=== PATIENT | male | born 1985 | race Caucasian/White ===

== ENCOUNTER 2021-01-27 17:02 | Emergency (ER) | payer BC, SELFPAY ==
[2021-01-27 17:05] VITALS: BP 143/85; PULSE 78; RESP 16; TEMP 36.6; O2SAT 100
--- NOTE | 2021-01-27 17:14 | ED.UPPEXIN ---
HPI - Extremity Injury (Upper) General Chief Complaint: Wound/Laceration Stated Complaint: left wrist injury Time Seen by Provider: 01/27/21 17:09 Source: patient and RN notes reviewed Mode of arrival: ambulatory Limitations: no limitations History of Present Illness HPI narrative: Patient states that he cut it on some wood carving tools this morning at 5:00 a.m.. He washed it with peroxide and iodine swabs. complaint: injury to: left and wrist Onset (ago): hour(s) (12) Other injuries: none Handedness: right Place: home Severity: mild Relieving factors: none Exacerbating factors: movement of extremity Context: laceration Associated symptoms: denies other symptoms Related Data Allergies Allergy/AdvReac Type Severity Reaction Status Date / Time No Known Allergies Allergy Verified 01/27/21 17:26 Review of Systems Review of Systems: All systems reviewed & are unremarkable except as noted in HPI and below PMFSH Past Medical History Medical History (Updated 01/27/21 @ 17:22 by Edgar Branham MD) No active medical problems Surgical History Surgical History (Updated 01/27/21 @ 17:22 by Edgar Branham MD) History of kidney surgery Social History Social History (Updated 01/27/21 @ 17:21 by Edgar Branham MD) Smoking packs per day: 1 Smoking cigarettes per day: 20.0 Smoking status: Current every day smoker Exam Const: General: healthy appearing and no acute distress Nutritional Appearance: well nourished and thin Orientation/consciousness: patient oriented x3 HENMT: Head: normal to inspection Ears: external ears normal Eyes: Conjunctivae: conjunctivae normal Pupils: Equal, round and reactive pupils present EOM: EOMs intact bilaterally Neck: Neck: normal visual inspection Resp: Effort & Inspection: normal respiratory effort Auscultation: clear to auscultation bilaterally Cardio: Rate: regular rate Rhythm: regular rhythm GI: GI Palp: Yes Soft to palpation and No Tenderness to palpation present (GI) Auscultation: normal bowel sounds Back/Spine/Pelvis: Cervical Spine: cervical ROM normal Thoracic/Lumbar Spine: thoraco-lumbar ROM normal Skin: General skin exam: normal color Rashes: no rashes Wounds: wounds noted laceration left palmar wrist size (3cm), margins well approximated and well defined and without odor Neuro: General: patient oriented x3, moves all extremities and no focal motor deficits Speech: normal speech Gait exam (Neuro): Normal gait present Extrem: General: normal to inspection and no clubbing, cyanosis or edema Psych: Appearance: grossly normal and well kempt Mental Status: mental status grossly normal Affect: normal affect Attitude: cooperative Thought content: Yes Normal thought content present Course Course Emergency Course: I explained the patient that it has been 12 hours since laceration. his laceration will have to heal by secondary intention. He will be put on antibiotics for 7 days he is advised to wash with soap and water as needed. Discharge Plan Discharge Clinical Impression: Laceration without foreign body Patient Disposition: Home, Self-Care Condition: Stable Instructions: Antibiotic Form, Laceration (ED) Additional Instructions: wash and dry with soap and water as needed. Use Tylenol and or Motrin as needed for pain. Prescriptions: New cephalexin 500 mg capsule 500 mg PO Q8H 7 Days Qty: 21 RF: 0 Follow-up/Referrals: UNKNOWN,DOCTOR [Primary Care Provider] - Time of Disposition: 17:20
[2021-01-27 17:22] VITALS: RESP 20
== END 2021-01-27 17:22 | disposition home or self-care (01) ==
PROVIDERS: Emergency Provider Emergency Medicine
DX: S61.512A Laceration without foreign body of left wrist, initial encounter (principal); W45.8XXA Other foreign body or object entering through skin, initial encounter
CPT/HCPCS: 99283

== ENCOUNTER 2021-02-10 20:29 | Emergency (ER) | payer BC, SELFPAY ==
[2021-02-10 20:30] VITALS: BP 120/84; PULSE 99; RESP 16; TEMP 36.9; O2SAT 98
--- NOTE | 2021-02-10 20:35 | ED.FEMALEGU ---
HPI - Female Genitourinary General Stated complaint: left wrist infection from cut Source: patient Mode of arrival: ambulatory History of Present Illness HPI Narrative: this is MD elicited complaint: dysuria and flank pain Pertinent past history: other ( history of bladder cancer) Onset (ago): day(s) Severity: mild Severity scale (1-10): 4 Quality of pain: dull Consistency: constant Vaginal discharge: none Vaginal bleeding: none Urinary symptoms: Dysuria Exacerbating factors: urination Associated symptoms: chills Related Data Allergies Allergy/AdvReac Type Severity Reaction Status Date / Time No Known Allergies Allergy Verified 01/27/21 17:26 [facility] Past Medical History Medical History (Updated 01/28/21 @ 00:01 by Willam Quiles) No active medical problems Surgical History Surgical History (Updated 01/27/21 @ 17:22 by Edgar Branham MD) History of kidney surgery Social History Social History (Updated 01/27/21 @ 17:21 by Edgar Branham MD) Smoking packs per day: 1 Smoking cigarettes per day: 20.0 Smoking status: Current every day smoker Discharge Plan Discharge Prescriptions: No Action cephalexin 500 mg capsule 500 mg PO Q8H 7 Days Qty: 21 RF: 0
[2021-02-10] MEDS: cefTRIAXone 1 GM VIAL IM (20:41)
--- NOTE | 2021-02-10 20:48 | ED.WOUNDLAC ---
HPI - Wound/Laceration General Chief Complaint: Wound/Laceration Stated Complaint: left wrist infection from cut Source: patient Mode of arrival: ambulatory Limitations: no limitations History of Present Illness HPI narrative: this is a 35-year-old gentleman that presents with a laceration that occurred 2 to 3 weeks ago was seen in ER and started on antibiotics laceration was at that time about 10-day-old and sutures were not placed patient was started on antibiotics, the patient currently went swimming in [place] and the the wound on his left wrist is some draining some yellow purulence material, there is no numbness or tingling in his fingers has a strong brisk radial pulse on the left with no fever chills. Patient is up-to-date with his tetanus. Onset (ago): day(s) Extremity Location: Left: wrist ( Wound) Place: home Patient tetanus UTD: Yes Context: accidental Associated symptoms: none Related Data Allergies Allergy/AdvReac Type Severity Reaction Status Date / Time No Known Allergies Allergy Verified 01/27/21 17:26 Review of Systems Review of Systems: All systems reviewed & are unremarkable except as noted in HPI and below PMFSH Past Medical History Medical History No active medical problems Surgical History Surgical History History of kidney surgery Social History Social History Smoking packs per day: 1 Smoking cigarettes per day: 20.0 Smoking status: Current every day smoker Exam Const: General: no acute distress Orientation/consciousness: patient oriented x3 HENMT: Head: normal to inspection Eyes: Conjunctivae: conjunctivae normal Pupils: Equal, round and reactive pupils present EOM: EOMs intact bilaterally Neck: Neck: normal visual inspection, no lymphadenopathy and no meningeal signs Chest: Chest palpation & inspection: normal inspection of the chest Resp: Effort & Inspection: normal respiratory effort Auscultation: clear to auscultation bilaterally Cardio: Rate: regular rate Rhythm: regular rhythm GI: GI Palp: Yes Soft to palpation Skin: General skin exam: normal color Other: Wound on his left wrist Neuro: General: patient oriented x3 and moves all extremities Extrem: General: normal to inspection and no pedal edema Psych: Mental Status: mental status grossly normal Affect: normal affect Attitude: cooperative Course Course Emergency Course: patient received IM ceftriaxone and triple antibiotic ointment. Critical Care Time Critical Care Time Critical Care Time: No Discharge Plan Discharge Clinical Impression: Abscess, Laceration Patient Disposition: Home, Self-Care Condition: Stable Instructions: Antibiotic Form, Acute Wounds (ED) Additional Instructions: take medicine as prescribed and follow-up with primary care physician if symptoms persist or worsen. Prescriptions: New amoxicillin-pot clavulanate [Augmentin] 875-125 mg tablet 1 tablet PO Q12H Qty: 20 RF: 0 mupirocin 2 % ointment 1 applic topical TID 7 Days Qty: 15 RF: 0 Follow-up/Referrals: UNKNOWN,DOCTOR [Primary Care Provider] - Time of Disposition: 20:55
[2021-02-10 20:53] VITALS: PULSE 100; RESP 16; O2SAT 97
== END 2021-02-10 21:11 | disposition home or self-care (01) ==
PROVIDERS: Emergency Provider Emergency Medicine
DX: L02.91 Cutaneous abscess, unspecified (principal); S61.512D Laceration without foreign body of left wrist, subsequent encounter
CPT/HCPCS: 96372; 99283; J0696

== ENCOUNTER 2021-05-10 04:33 | Emergency (ER) | payer BC, SELFPAY ==
[2021-05-10 04:38] VITALS: PULSE 72; RESP 18; TEMP 36.6; O2SAT 96
--- NOTE | 2021-05-10 04:39 | ED.WOUNDLAC ---
HPI - Wound/Laceration General Chief Complaint: Unspecified Stated Complaint: ABRASION Time Seen by Provider: 05/10/21 04:39 Source: patient Mode of arrival: ambulatory Limitations: no limitations History of Present Illness HPI narrative: 36-year-old man who was previously well comes in today complaining of pain in the tip of his right thumb and long finger that started 2 days ago. He was standing wood by hand when he had splinters enter the tips of several of his fingers. He states that he was able to remove several by hand but the 2 aforementioned fingers he could not fix. States he put super glue on some of the wounds in order to try to get the splinters out. He denies any redness, drainage. He states that it is intermittently painful and numb. Onset (ago): day(s) (2) Extremity Location: Right: hand (Thumb and long finger) Place: home Patient tetanus UTD: No Context: accidental Associated symptoms: pain and loss of feeling/numbness Related Data Allergies Allergy/AdvReac Type Severity Reaction Status Date / Time No Known Allergies Allergy Verified 01/27/21 17:26 Review of Systems Review of Systems: All systems reviewed & are unremarkable except as noted in HPI and below Constitutional: Constitutional: Denies chills and Denies fever(s) Musculoskeletal: Musculoskeletal: Denies arthralgias and Denies joint swelling Integumentary/Breasts: Skin/Breast: Denies pruritus, Denies erythema and Denies rash Hematologic/Lymphatic: Hematologic/Lymphatic: Denies easy bleeding and Denies easy bruising PMFSH Past Medical History Medical History No active medical problems Surgical History Surgical History History of kidney surgery Social History Social History Smoking packs per day: 1 Smoking cigarettes per day: 20.0 Smoking status: Current every day smoker Exam Const: General: healthy appearing and alert Limitations: no limitations Other: Mild acute distress. Anxious. Skin: General skin exam: normal color, no jaundice and no pallor Rashes: no rashes Other: Abrasions at the finger tips near the nail plate of the long finger and thumb. Both are very sensitive to palpation. There is minimal swelling if any and no erythema, drainage, fluctuance, or palpable foreign body. Neuro: General: patient oriented x3, moves all extremities, no focal motor deficits and CN's II-XI intact bilaterally Speech: normal speech Gait exam (Neuro): Normal gait present Extrem: General: normal to inspection and no clubbing, cyanosis or edema Psych: Appearance: grossly normal and well kempt Mental Status: mental status grossly normal Affect: normal affect Attitude: cooperative Thought content: Yes Normal thought content present Course Course Emergency Course: 0500: Close examination of the tips of the right long finger and thumb reveal no evident foreign body by visualization or palpation however there is some apparent abrasions/wounds adjacent to the nail bed as though he had cut his nails too short. Tenderness persisted despite attempt at digital block in both affected fingers. Vital Signs Vital signs: Vital Signs Temperature 36.6 C 05/10/21 04:38 Pulse Rate 72 05/10/21 04:38 Respiratory Rate 18 05/10/21 04:38 Pulse Oximetry 96 05/10/21 04:38 Temperature 36.6 C 05/10/21 04:38 Pulse Rate 72 05/10/21 04:38 Respiratory Rate 18 05/10/21 04:38 Pulse Oximetry 96 05/10/21 04:38 Procedures Foreign Body Removal Foreign Body #1: Foreign Body Removal Date: 05/10/21 Foreign Body Removal Time: 05:00 Time Out Performed: yes Site: right and hand Description of foreign body: other (Splinters) Sedation/Analgesia: other (1.5 cc plain lidocaine were injected in the spaces ulnar and radial to the 1st MCP of
[2021-05-10] MEDS: TETANUS,DIPHTHERIA,AC PERTUSSIS ADULT 0.5 ML (ADACEL) IM (04:51)
[2021-05-10] MEDS: LIDOCAINE HCL 1% LOCAL INJ 20 ML VIAL 10 ML INFILTRATE (04:52)
--- NOTE | 2021-05-10 05:28 | PC.NURSE ---
patient hand scrubbed by with rosalia & area investigated for wood.
[2021-05-10 05:29] VITALS: PULSE 88; RESP 18; TEMP 36.6; O2SAT 99
== END 2021-05-10 05:34 | disposition home or self-care (01) ==
PROVIDERS: Emergency Provider Emergency Medicine
DX: S60.351A Superficial foreign body of right thumb, initial encounter (principal); S60.452A Superficial foreign body of right middle finger, initial encounter; F17.200 Nicotine dependence, unspecified, uncomplicated
CPT/HCPCS: 90471; 90715; 99283

== ENCOUNTER 2021-09-23 22:20 | Emergency (ER) | payer BC, SELFPAY ==
[2021-09-23 22:30] VITALS: BP 122/97; PULSE 79; RESP 16; TEMP 36.3; O2SAT 100
--- NOTE | 2021-09-23 23:02 | ED.SKABFB ---
HPI - Skin/Abscess/Foreign Bdy General Chief complaint: Skin/Abscess/Foreign Body Stated complaint: cyst in front of ear Source: patient and RN notes reviewed Mode of arrival: ambulatory Limitations: no limitations History of Present Illness HPI narrative: Patient states he has always had a small amount of swelling in front of his left ear in front of the tragus. Last 3 days it has gotten significantly more swollen and tender. complaint: abscess/boil Onset (ago): day(s) (3) Location: face Severity: severe Quality: burning and constant Pain Consistency: constant Relieving factors: none Exacerbating factors: palpation and movement Context: none Associated symptoms: denies other symptoms Treatments prior to arrival: none Related Data Allergies Allergy/AdvReac Type Severity Reaction Status Date / Time codeine Allergy Vomiting Verified 09/23/21 22:38 Review of Systems Review of Systems: All systems reviewed & are unremarkable except as noted in HPI and below Constitutional: Constitutional: Denies chills and Denies fever(s) PMFSH Past Medical History Medical History No active medical problems Surgical History Surgical History History of kidney surgery Social History Social History Smoking packs per day: 1 Smoking cigarettes per day: 20.0 Smoking status: Current every day smoker Exam Const: General: healthy appearing, no acute distress and alert Nutritional Appearance: well nourished Orientation/consciousness: patient oriented x3 HENMT: Head: normal to inspection Ears: external ears normal Face and sinus: normal facial exam Eyes: Conjunctivae: conjunctivae normal Pupils: Equal, round and reactive pupils present EOM: EOMs intact bilaterally Neck: Neck: normal visual inspection and no lymphadenopathy Resp: Effort & Inspection: normal respiratory effort Auscultation: clear to auscultation bilaterally Cardio: Rate: regular rate Rhythm: regular rhythm GI: Auscultation: normal bowel sounds Back/Spine/Pelvis: Cervical Spine: cervical ROM normal Thoracic/Lumbar Spine: thoraco-lumbar ROM normal Skin: General skin exam: normal color Lesions: lesion noted (abscess 1.5 cm Erythema, warmth, tender.) cyst left face Neuro: General: patient oriented x3, moves all extremities, no meningeal signs, no focal motor deficits and CN's II-XI intact bilaterally Speech: normal speech Gait exam (Neuro): Normal gait present Extrem: General: normal to inspection and no clubbing, cyanosis or edema Psych: Appearance: grossly normal and well kempt Mental Status: mental status grossly normal Affect: normal affect Attitude: cooperative Thought content: Yes Normal thought content present Course Vital Signs Vital signs: Vital Signs Temperature 36.3 C L 09/23/21 22:30 Pulse Rate 79 09/23/21 22:30 Respiratory Rate 16 09/23/21 22:30 Blood Pressure 122/97 H 09/23/21 22:30 Pulse Oximetry 100 09/23/21 22:30 Temperature 36.3 C L 09/23/21 22:30 Pulse Rate 94 09/23/21 23:30 Respiratory Rate 16 09/23/21 23:30 Blood Pressure 117/88 09/23/21 23:30 Pulse Oximetry 99 09/23/21 23:30 MDM - Skin/Abscess/Foreign Bdy MDM Narrative Medical decision making narrative: This shows infection of a preauricular cyst. I would be hesitant to lacerate this as the surrounding structures including branches of the facial nerve and the temporal artery. I will start him on some antibiotics and ask that he see ear flap binder for further evaluation of the pre-auricular cyst. Discharge Plan Discharge Clinical Impression: Cyst of left preauricular region Patient Disposition: Home, Self-Care Condition: Stable Instructions: Antibiotic Form, Abscess (ED) Additional Instructions: Warm compresses 3-4 times daily. Follow u
[2021-09-23] MEDS: AMOXICILLIN/CLAVULANATE K 875-125 MG TAB 1 TABLET PO (23:19)
[2021-09-23 23:30] VITALS: BP 117/88; PULSE 94; RESP 16; O2SAT 99
== END 2021-09-23 23:33 | disposition home or self-care (01) ==
PROVIDERS: Emergency Provider Emergency Medicine
DX: L72.9 Follicular cyst of the skin and subcutaneous tissue, unspecified (principal)
CPT/HCPCS: 99283; A9270

== ENCOUNTER 2022-03-18 08:43 | Emergency (ER) | payer BC, SELFPAY ==
[2022-03-18 08:51] VITALS: BP 120/94; PULSE 84; RESP 16; TEMP 36.4; O2SAT 100
[2022-03-18] MEDS: TETRACAINE HCL 0.5% OPHTH SOLN 4 ML BTL 1 DROP RIGHT EYE (09:30)
[2022-03-18] MEDS: FLUORESCEIN SOD 1 MG/STRIP RIGHT EYE (09:30)
[2022-03-18] MEDS: ERYTHROMYCIN OPHTH OINTMENT 3.5 GM TUBE 1 APPLIC RIGHT EYE (09:31)
--- NOTE | 2022-03-18 09:33 | PC.NURSE ---
PT REPORTS HE ALSO CLEANED A SEWAGE SPILL FRIDAY AND SOME SPLASHED IN HIS EYE. EYE STAIN AND EXAM WAS COMPLETED PER ERP.
--- NOTE | 2022-03-18 09:35 | ED.EYEPROB ---
HPI - Eye Problem General Chief complaint: Eye Problems Stated complaint: R EYE PAIN Time Seen by Provider: 03/18/22 08:47 Source: patient and RN notes reviewed Mode of arrival: ambulatory Limitations: no limitations History of Present Illness chief complaint: eye redness Onset (ago): day(s) (2) Onset description: gradual Duration: improved Location: right eye Eye Symptoms: burning and redness Place: home Mechanism: chemical exposure (was cleaning a counter pocket sewer?) Severity: moderate Severity scale (1-10): 2 Associated symptoms: none Treatments Prior to Arrival: irrigated eye Related Data Allergies Allergy/AdvReac Type Severity Reaction Status Date / Time codeine Allergy Vomiting Verified 03/18/22 09:10 Review of Systems Review of Systems: All systems reviewed & are unremarkable except as noted in HPI and below Constitutional: Constitutional: Reports no additional constitutional complaints Eyes: Eyes: Reports as per HPI ENT: Reports system reviewed and no additional complaints, except as documented Cardiovascular: Cardiovascular: Reports no additional cardiovascular complaints Respiratory: Respiratory: Reports no additional respiratory complaints Gastrointestinal: Gastrointestinal: Reports no additional gastrointestinal complaints Musculoskeletal: Musculoskeletal: Reports no additional musculoskeletal complaints Integumentary/Breasts: Skin/Breast: Reports system reviewed and no additional complaints, except as docu Neurologic: Reports system reviewed and no additional complaints, except as documented Psychiatric: Psychiatric: Reports no additional psychiatric complaints Endocrine: Endocrine: Reports no additional endocrine complaints Hematologic/Lymphatic: Hematologic/Lymphatic: Reports no additional hematologic/lymphatic complaints Allergic/Immunologic: Allergic/Immunologic: Reports no additional allergic/immunologic complaints PMFSH Past Medical History Medical History Conjunctivitis No active medical problems Surgical History Surgical History History of kidney surgery Social History Social History Smoking packs per day: 1 Smoking cigarettes per day: 20.0 Smoking status: Current every day smoker Exam Const: General: healthy appearing and no acute distress Nutritional Appearance: well nourished Orientation/consciousness: patient oriented x3 Limitations: no limitations HENMT: Head: normal to inspection Ears: external ears normal, TM's normal bilaterally and EAC's normal General nose exam: Normal external nose present and Normal nares present Face and sinus: normal facial exam and sinuses nontender Mouth: Yes Normal oral and palatal mucosa present and Yes moist mucous membranes Teeth and gingiva: dentition normal Throat: posterior oropharynx normal Eyes: Conjunctivae: conjunctival abnormality (mild scleral injection with upper eye scleral abrasion. vision wnl.) right Pupils: Equal, round and reactive pupils present EOM: EOMs intact bilaterally Neck: Neck: normal visual inspection, no lymphadenopathy and no meningeal signs Chest: Chest palpation & inspection: normal inspection of the chest Resp: Effort & Inspection: normal respiratory effort Auscultation: clear to auscultation bilaterally Cardio: Rate: regular rate Rhythm: regular rhythm GI: GI Palp: Yes Soft to palpation and No Tenderness to palpation present (GI) Auscultation: normal bowel sounds : General: Yes bladder normal to palpation and Yes no CVA tenderness Back/Spine/Pelvis: Back: no CVA tenderness Skin: General skin exam: normal color Rashes: no rashes Wounds: no wounds Neuro: General: patient oriented x3, moves all extremities, no meningeal signs, no focal motor deficits and CN's II-XI intact bilaterally Cranial nerves: Yes Equal, round and re
== END 2022-03-18 09:47 | disposition home or self-care (01) ==
PROVIDERS: Emergency Provider Emergency Medicine
DX: H10.9 Unspecified conjunctivitis (principal)
CPT/HCPCS: 99283; A9270

== ENCOUNTER 2022-07-07 00:45 | Emergency (ER) | payer BC, SELFPAY ==
[2022-07-07 00:45] VITALS: BP 132/97; PULSE 77; RESP 20; TEMP 36.6; O2SAT 99
[2022-07-07 01:57] LABS: Strep Group A RT-PCR Not Detected (Negative)
[2022-07-07 02:00] VITALS: BP 130/97; PULSE 72; RESP 20; TEMP 36.9; O2SAT 99
[2022-07-07 02:07] LABS: Influenza A QL RT-PCR Positive (Negative); Influenza B QL RT-PCR Negative (Negative); SARS-CoV-2 RNA PCR Negative (Negative)
[2022-07-07 02:09] LABS: RSV RNA, RT-PCR Negative (Negative)
--- NOTE | 2022-07-07 02:54 | ED.URI ---
HPI - URI/Sore Throat General Chief Complaint: Upper Respiratory Infection Stated Complaint: sore throat Time Seen by Provider: 07/07/22 00:49 Source: patient and RN notes reviewed Mode of arrival: ambulatory Limitations: no limitations History of Present Illness MD elicited complaint: sore throat and nasal congestion Onset (ago): day(s) (2) Consistency: progressively worsening Severity: mild Pain scale (0-10): 2 Able to tolerate fluids by mouth: Yes Exacerbating factors: nothing Relieving factors: OTC cold medicine Associated symptoms: myalgias, headache, nasal congestion, sore throat and shortness of breath Treatments prior to arrival: acetaminophen and cold medicine Related Data Allergies Allergy/AdvReac Type Severity Reaction Status Date / Time codeine Allergy Vomiting Verified 03/18/22 09:10 Review of Systems Review of Systems: All systems reviewed & are unremarkable except as noted in HPI and below Constitutional: Constitutional: Reports no additional constitutional complaints Eyes: Eyes: Reports no additional eye complaints ENT: Reports system reviewed and no additional complaints, except as documented and Reports sore throat Cardiovascular: Cardiovascular: Reports no additional cardiovascular complaints Respiratory: Respiratory: Reports no additional respiratory complaints and Reports wheezing Gastrointestinal: Gastrointestinal: Reports no additional gastrointestinal complaints Musculoskeletal: Musculoskeletal: Reports no additional musculoskeletal complaints Integumentary/Breasts: Skin/Breast: Reports system reviewed and no additional complaints, except as docu Neurologic: Reports system reviewed and no additional complaints, except as documented Psychiatric: Psychiatric: Reports no additional psychiatric complaints Endocrine: Endocrine: Reports no additional endocrine complaints Hematologic/Lymphatic: Hematologic/Lymphatic: Reports no additional hematologic/lymphatic complaints Allergic/Immunologic: Allergic/Immunologic: Reports no additional allergic/immunologic complaints [facility] Past Medical History Medical History (Updated 07/15/22 @ 22:37 by Lisa Serrano MD) Acute pharyngitis Bronchitis Conjunctivitis Influenza A No active medical problems Surgical History Surgical History History of kidney surgery Social History Social History Smoking packs per day: 1 Smoking cigarettes per day: 20.0 Smoking status: Current every day smoker Exam Const: General: healthy appearing, no acute distress and well nourished Nutritional Appearance: well nourished Orientation/consciousness: patient oriented x3 Limitations: no limitations HENMT: Head: normal to inspection Ears: external ears normal, TM's normal bilaterally and EAC's normal Face/Nose/Sinus: Normal external nose present, Normal nares present, normal facial exam and sinuses nontender Face and sinus: normal facial exam and sinuses nontender Mouth: Yes Normal oral and palatal mucosa present and Yes moist mucous membranes Teeth and gingiva: dentition normal Other: hyperemic pharynx Eyes: Conjunctivae: conjunctivae normal Pupils: Equal, round and reactive pupils present EOM: EOMs intact bilaterally Neck: Neck: normal visual inspection, no lymphadenopathy and no meningeal signs Chest: Chest palpation & inspection: normal inspection of the chest Resp: Effort & Inspection: normal respiratory effort Auscultation: clear to auscultation bilaterally, rhonchi and wheezes Cardio: Rate: regular rate Rhythm: regular rhythm GI: GI Palp: Yes Soft to palpation and No Tenderness to palpation present (GI) Auscultation: normal bowel sounds : General: Yes bladder normal to palpation and Yes no CVA tenderness Back/Spine/Pelvis: Back: no CVA tenderness Skin: General skin exam: normal color Rashes: no rashes Wounds: no
[2022-07-07 03:09] VITALS: BP 130/92; PULSE 70; RESP 20; TEMP 37.2; O2SAT 98
== END 2022-07-07 03:25 | disposition home or self-care (01) ==
PROVIDERS: Emergency Provider Emergency Medicine
DX: J11.1 Influenza due to unidentified influenza virus with other respiratory manifestations (principal); J40 Bronchitis, not specified as acute or chronic; Z20.822 Contact with and (suspected) exposure to COVID-19
CPT/HCPCS: 87637; 87651; 99283